=== PATIENT | female | born 1970 | race Caucasian/White ===

== ENCOUNTER 2019-06-07 15:25 | Inpatient (IN) | payer MEDICAID ==
[~2019-06-07] VITALS: Ht 170.2 cm; Wt 165.6 kg
--- NOTE | ~2019-06-07 | DS ---
PATIENT:SPIKE KAUR :70 MEDICAL RECORD: [id number] DISCHARGE SUMMARY ADMISSION DATE: 06/07/19 DISCHARGE DATE: 06/13/19 PRINCIPAL DIAGNOSIS: Large incarcerated ventral hernia. PROCEDURE: Laparoscopic incarcerated ventral hernia repair with mesh. OTHER DIAGNOSES: 1. New onset atrial fibrillation with rapid ventricular response. 2. Hypertension. 3. Left ventricular hypertrophy. 4. Trivial tricuspid regurgitation 5. Anxiety. 6. Arthritis. 7. Vertigo. HOSPITAL COURSE: The patient was a transfer from [place]. She underwent the above operative procedure. Postoperatively, she developed atrial fibrillation with a rapid ventricular response. Family practice and cardiology consultations were obtained. The patient converted to a sinus rhythm. She is being dismissed home on amiodarone as well as [place] and Colace. I will see her in the office in about 4 weeks. Discharge instructions were given to the patient verbally by me. TRANSINT:[id number] Voice Confirmation ID: [id number] DOCUMENT ID: [id number] RUTHIE DUQUE MD CC: [id number] DICTATION DATE: 06/13/191747 DRIVER LICENSE EXAMINER: 06/13/19 223 DIS IN 06/13/19 [place] [id number] [place] [id number]
[2019-06-07] MEDS ORDERED: LISINOPRIL20 MG PO (15:30)
[2019-06-07] MEDS ORDERED: XANAX1 MG PO (15:30)
[2019-06-07] MEDS ORDERED: MOBIC7.5 MG PO (15:30)
--- NOTE | 2019-06-07 16:03 | NUR ---
DR. DUQUE AT BEDSIDE , 2 MG OF DILAUDID GIVEN. PER ORDERS. PT LAYING FLAT AND SUPINE.
[2019-06-07 16:18] LABS: BASOPHILS 0.3 % (0-2); EOSINOPHILS 1.2 % (0-7); HEMATOCRIT 40.9 % (36.0-48.0); HEMOGLOBIN 13.4 g/dL (12-16); IMMATURE GRANULOCYTES 0.4 % (0-5); LYMPHOCYTES 19.2 % (15-50); MCH 28.5 pg (26.0-34.0); MCHC 32.8 g/dL (31.0-37.0); MEAN PLATELET VOLUME 9.8 fL (7.4-10.4); MONOCYTES 5.8 % (2-11); NEUTROPHILS 73.1 % (40-80); PLATELET COUNT 326 10x3/uL (130-400); RDW 15.7 % (11.5-14.5); WBC 11.9 10x3/uL (4.8-10.8)
[2019-06-07 16:28] LABS: CALC OSMOLALITY 276 mosm/kg (275-300); CALCIUM 9.2 mg/dL (8.5-10.1); CARBON DIOXIDE 27.3 mmol/L (21.0-32.0); CHLORIDE - SERUM 101 mmol/L (98-107); CREATININE - SERUM 0.8 mg/dL (0.6-1.3); GLUCOSE 124 mg/dL (74-106); POTASSIUM - SERUM 3.9 mmol/L (3.5-5.1); SODIUM 138 mmol/L (136-145); UREA NITROGEN 12 mg/dL (7-18); eGFR NON AFRICAN AMERICAN 81 mL/min (90-120)
[2019-06-07 16:39] LABS: ALBUMIN 3.7 g/dL (3.4-5.0); ALKALINE PHOSPHATASE 83 U/L (30-120); ALT (SGPT) 48 U/L (10-68); AMYLASE - SERUM 54 U/L (25-115); BILIRUBIN - TOTAL 0.48 mg/dL (0.2-1.3); LIPASE 577 U/L (73-393); PROTEIN - SERUM 7.7 g/dL (6.4-8.2); TROPONIN-I < 0.017 ng/mL (0.000-0.060)
[2019-06-07 17:23] LABS: APTT 29.3 SECONDS (22.8-39.4); INR 1.03 (0.85-1.17); PROTIME 13.4 SECONDS (11.6-15.0)
[2019-06-07 18:26] VITALS: BP 126/76; BMI 57.3
--- NOTE | 2019-06-07 19:00 | NUR ---
PATIENT ALERT AND ORIENTED WHEN ENTERING THE ROOM. PATIENT HAS DISTENDED ABDOMEN WITH HYPOACTIVE BOWELS SOUNDS TO EACH QUADRANT. ABDOMEN IS FIRM TO PALPATION. PATIENT STATES ITS TENDER TO TOUCH. DENIES PAIN MEDICINE AT THIS TIME. AT BEDSIDE. BOTH RECEPTIVE TO TEACHING ABOUT NPO AT MIDNIGHT AND CONSENTS FOR SURGERY. CALL LIGHT IN REACH. CPOC.
--- NOTE | 2019-06-07 19:52 | NUR ---
CALLED CUSTODIAL OPERATIONS MANAGER TO GET MEDICATIONS THAT DR. DUQUE PUT IN. WAS INFORMED THAT IT WOULD BE "A WHILE" AND THAT IT MAY HAVE TO BE FROM NEXT GASKET INSPECTOR.
[2019-06-07 20:00] VITALS: BP 136/57
--- NOTE | 2019-06-07 20:08 | NUR ---
ADMINISTERD DILAUDID COLLECTION DEVELOPMENT LIBRARIAN PER ORDER. SPOKE WITH PATIENT ON HOW TO USE AND PATIENT PROVIDED RETURN DEMONSTRATION. PATIENT STATES SHE DOES NOT WANT THE ATIVAN WITH THE DILAUDID. SHE STATES SHE FEELS THOUGH THE DILAUDID WILL HELP WITH HER ANXIETY. SPOKE WITH PATIENT ABOUT NPO STATUS AND UPCOMING MAG CITRATE. PATIENT VERBALIZES UNDERSTANDING. ALSO VERBALIZES UNDERSTANDING ON AM HIBBA CLEANSE. DENIES FURTHER NEEDS AT THIS TIME. CALL LIGHT IN REACH. CPOC.
--- NOTE | 2019-06-07 22:20 | NUR ---
PATIENT COMPLAINING OS NAUSEA. ADMINISTERED ZOFRAN PER ORDER.
--- NOTE | 2019-06-07 22:23 | NUR ---
CONSENTS SIGNED. PLACED ON CHART.
--- NOTE | 2019-06-07 23:03 | NUR ---
MANAGED SERVICES CONSULTANT CAME TO PULL MAG CITRATE THAT WAS ORDERED AT 1930 AFTER SEVERAL CALLS TO PULL MEDS. PROVIDED TO PATIENT AND INSTRUCTED TO DRINK 150 ML/HALF BOTTLE PER ORDER. HEAVILY ENCOURAGED TO DRINK PRIOR TO MIDNIGHT. PATIENT STATES UNDERSTANDING. PATIENT DRINKING PRIOR TO EXITING THE ROOM. CPOC.
[2019-06-08] VITALS: BP 139/69
--- NOTE | 2019-06-08 00:32 | NUR ---
URINE COLLECTED. SENT TO LAB PER ORDER.
[2019-06-08 00:42] LABS: BILIRUBIN NEGATIVE (NEGATIVE); GLUCOSE NEGATIVE (NEGATIVE); KETONE SMALL mg/dL (NEGATIVE); NITRITE NEGATIVE (NEGATIVE); UROBILINOGEN NORMAL (NORMAL)
--- NOTE | 2019-06-08 02:49 | NUR ---
I have reviewed this patient and I concur with the Shift Assessment completed by the Licensed Practical Nurse today this shift.
[2019-06-08 04:00] VITALS: BP 114/62
[2019-06-08 05:18] LABS: BASOPHILS 0.2 % (0-2); EOSINOPHILS 0.3 % (0-7); HEMATOCRIT 37.4 % (36.0-48.0); IMMATURE GRANULOCYTES 0.2 % (0-5); LYMPHOCYTES 13.4 % (15-50); MCH 28.1 pg (26.0-34.0); MCHC 32.1 g/dL (31.0-37.0); MCV 87.6 fL (80.0-100.0); MEAN PLATELET VOLUME 9.7 fL (7.4-10.4); NEUTROPHILS 79.9 % (40-80); PLATELET COUNT 296 10x3/uL (130-400); RBC 4.27 10x6/uL (4.00-5.40); RDW 15.6 % (11.5-14.5); WBC 11.4 10x3/uL (4.8-10.8)
[2019-06-08 05:44] LABS: ALBUMIN 3.3 g/dL (3.4-5.0); ALKALINE PHOSPHATASE 74 U/L (30-120); ALT (SGPT) 40 U/L (10-68); BILIRUBIN - TOTAL 0.53 mg/dL (0.2-1.3); CALC OSMOLALITY 278 mosm/kg (275-300); CALCIUM 8.4 mg/dL (8.5-10.1); CARBON DIOXIDE 28.5 mmol/L (21.0-32.0); CHLORIDE - SERUM 102 mmol/L (98-107); CREATININE - SERUM 0.8 mg/dL (0.6-1.3); GLUCOSE 120 mg/dL (74-106); MAGNESIUM - SERUM 2.3 mg/dL (1.8-2.4); PHOSPHOROUS 3.6 mg/dL (2.5-4.9); POTASSIUM - SERUM 3.8 mmol/L (3.5-5.1); PROTEIN - SERUM 7.1 g/dL (6.4-8.2); SODIUM 139 mmol/L (136-145); UREA NITROGEN 12 mg/dL (7-18); eGFR NON AFRICAN AMERICAN 81 mL/min (90-120)
[2019-06-08 08:06] VITALS: BP 133/67
--- NOTE | 2019-06-08 09:00 | NUR ---
ALERT AND ORIENTED X4. ABDOMEN OBESE WITH TENDERNESS AND DISTENTION NOTED ON PALPATION TO UMBILICAL AREA. BOWEL SOUNDS NOTED X4. IVF AND NETWORK CABLE INSTALLER DILAUDID AT PRESRIBED SETTINGS. DENEIS ANY PAIN OR DISCOMFORT AT THIS TIME. REMAINS NPO PENDING SURGERY WITH HIBICLNS DONE ON PRIOR SHIFT.SCD'S INTACT. HRRR AND LUNGS CTA.
--- NOTE | 2019-06-08 12:05 | NUR ---
PATIENT PRE-OPED WITH SURGICAL STAFF HERE. DENTURES REMOVED AND IN ROOM. STABLE AT TIME OF DEPARTURE.
[2019-06-08 12:34] VITALS: BP 125/57
--- NOTE | 2019-06-08 15:40 | NUR ---
APPROX 225 CC OF BLOODY OUTPUT FROM RACHEL DRAIN.
[2019-06-08 15:49] VITALS: BP 123/62
--- NOTE | 2019-06-08 15:58 | NUR ---
PATIENT RECEIVED TO ROOM IV AND ITEM PROCESSOR REESTABLISHED FOR PAIN MANAGEMENT. V/S STABLE
--- NOTE | 2019-06-08 19:05 | NUR ---
PATIENT ALERT AND ORIENTED WHEN ENTERING THE ROOM. AT BEDSIDE. PATIENT WEARING 2L NASAL CANNULA. VITALS ASSESSED AND STABLE AT THIS TIME. O2 % CURRENTLY 97% ON 2L, TITRATED TO 1, AND REMAINED AT 97, REMOVED NC AND O2 REMAINED AT 97. CANNULA IN REACH AT BEDSE IN CASE PATIENT FEELS SOB. VERBALIZED THIS TO PATIENT. RIGHT AC THAT IS PATENT AND INFUSING NS @ 125 WITH DILAUDID BOBBIN CLEANER 0.2/10/4MG LOCKOUT. PATIENT CURRENTLY WEARING ABDOMINAL BINDER. ASSESSED ABDOMEN, LAP SITES AND DRESSINGS TO MID SECTION. SCANT AMOUNT OF BRIGHT RED BLOOD NOTED TO THE DRESSING, NO SIGNS OF CONTINUAL BLEEDING. RACHEL DRAIN TO THE LEFT SIDE OF THE ABDOMEN. STRAINED LINE AND EMPTIED 10 CC. BOWEL SOUNDS ACTIVE IN EACH QUADRANT. PATIENT HAS SCD'S ON BILATERALLY. CURRENTLY USING [place]. DENIES FURTHER NEEDS AT THIS TIME. CPOC.
[2019-06-08 20:00] VITALS: BP 101/63
[2019-06-08 20:01] LABS: BASOPHILS 0.2 % (0-2); EOSINOPHILS 0.1 % (0-7); HEMATOCRIT 36.5 % (36.0-48.0); HEMOGLOBIN 11.4 g/dL (12-16); IMMATURE GRANULOCYTES 0.5 % (0-5); LYMPHOCYTES 8.2 % (15-50); MCH 27.9 pg (26.0-34.0); MCHC 31.2 g/dL (31.0-37.0); MCV 89.2 fL (80.0-100.0); MEAN PLATELET VOLUME 9.5 fL (7.4-10.4); MONOCYTES 4.9 % (2-11); NEUTROPHILS 86.1 % (40-80); PLATELET COUNT 260 10x3/uL (130-400); RBC 4.09 10x6/uL (4.00-5.40); RDW 15.9 % (11.5-14.5)
[2019-06-08 20:04] LABS: WBC 15.4 10x3/uL (4.8-10.8)
--- NOTE | 2019-06-08 21:05 | NUR ---
PATIENT COMPLAINING OF NAUSEA. ADMINISTERED ZOFRAN PER ORDER.
--- NOTE | 2019-06-08 23:09 | NUR ---
ASSISTED PATIENT IN REPOSITIONING. DENIES FURTHER NEEDS AT THIS TIME. CALL LIGHT IN REACH. SIDE RAILS UP X 2. IV REMAINS PATENT. CPOC.
[2019-06-09] VITALS: BP 123/65
--- NOTE | 2019-06-09 03:00 | NUR ---
I have reviewed this patient and I concur with the Shift Assessment completed by the Licensed Practical Nurse today this shift.
[2019-06-09 04:00] VITALS: BP 104/58
[2019-06-09 08:58] VITALS: BP 185/83
--- NOTE | 2019-06-09 09:31 | NUR ---
WENT TO ASSESS PT AND EXPLAINED THAT I WAS GOING TO LOOK AT HER LAPSITES, PT STATED ARE YOU GOING TO UNDO IT. I THOUGHT SHE MEANT HER DRESSING SO I STATED NO I JUST WANT TO LOOK AT YOUR DRAINAGE, WENT TO UNDO ABDOMINAL BINDER AND PT NEARLY JUMPED OUT OF HER SKIN STATING IT HURTS TOO BAD AND TO PUT IT BACK. UNABLE TO ASSESS ALL INCISION SITES AT THIS TIME. INCISION TO RT ABD IS CLEAN AND DRY, SAW A LARGE MIDLINE DRESSING WHICH LOOKS TO BE CDI, RACHEL DRAIN TO LEFT SIDE, IV IS IN PT RT AC, RA, SPOUSE AT BEDSIDE,CL IN REACH, CONTINUE WITH PLAN OF CARE
--- NOTE | 2019-06-09 12:13 | NUR ---
PT C/O ABD PAIN AT A 10 STILL WITH GEODETIC COMPUTATOR, PT STATES THAT SHE WANTS TO SEE , PT HAS GEODETIC COMPUTATOR AND NO OTHER MEDS AT THIS TIME FOR PAIN, OFFERED BOLUS AND PT DECLINED, PT DID REQUEST NAUSEA MEDICATION, SPOUSE AT BEDSIDE, NO OTHER NEEDS VOICED AT THIS TIOME, CONTINUE WITH PLAN OF CARE
[2019-06-09 13:49] VITALS: BP 123/86
--- NOTE | 2019-06-09 14:22 | NUR ---
I have reviewed this patient and I concur with the Shift Assessment completed by the Licensed Practical Nurse today this shift.
[2019-06-09 14:57] VITALS: BMI 57.2
[2019-06-09 16:39] VITALS: BP 115/57
[2019-06-09 20:00] VITALS: BP 125/57
--- NOTE | 2019-06-10 03:00 | NUR ---
PT REPORTS STEADY ABDOMINAL PAIN WITH LEGAL ARBITRATOR USE, DRESSINGS C/D/I. REPORTS NO PASSING OF FLATUS, BUT FEELS IT RUMBLING IN HER ABDOMEN. ENCOURAGED PT TO SWITCH POSITIONS FREQUENTLY AND TRY SITTING UP AND GETTING UP TO HELP PASSAGE OF GAS. PT VERBALIZED UNDERSTANDING. WILL CONTINUE TO MONITOR.
[2019-06-10 04:00] VITALS: BP 122/62
--- NOTE | 2019-06-10 07:30 | NUR ---
PT IS SITTING UP TO BEDSIDE CHAIR. PT IS AAO X 4 WITH COMPLAINTS OF NAUSEA WITHOUT EMESIS AT THIS TIME. PT DESCRIBES PAIN TO ABDOMEN SHARP AND 10/10. LEASING AGENT DILAUDID AVAILABLE. PT STATES "IM JUST NOT READY TO GO HOME. WHY AM I THROWING UP". PT STATES THAT SHE HAS NOT PASSED GAS "YET". PT ENCOURAGED TO TCDB WITH PILLOWS USED FOR SPLINTING. PT VERBALIZES UNDERSTANDING AND DENIES FURTHER QUESTIONS.BED IS IN THE LOWEST POSITION. BEDSIDE CHAIR WHEELS ARE LOCKED. CALL LIGHT AND BEDSIDE TABLE ARE WITIHN REACH. SIDE RAILS X 2. PT DENIES FURTHER NEEDS. WILL CONT TO MONITOR.
[2019-06-10 08:10] VITALS: BP 125/56
--- NOTE | 2019-06-10 11:33 | OP ---
PATIENT NAME: SPIKE KAUR MEDICAL RECORD: [id number] :70 LOCATION:D.MS [id number] ADMISSION DATE:06/07/19 SURGEON: RUTHIE DUQUE MD DATE OF OPERATION: 06/08/2019 PREOPERATIVE DIAGNOSIS: Incarcerated ventral hernia. POSTOPERATIVE DIAGNOSIS: Incarcerated ventral hernia. PROCEDURE: Laparoscopic incarcerated ventral hernia repair with the Ventralight ST mesh. SURGEON: Ruthie Duque MD ROTARY SAW OPERATOR: None. BLOOD LOSS: Please see the anesthesia sheet. DRAINS: Times 1 (10-Sammarinese round fully fluted drainage system). OPERATIVE COURSE: The patient was conveyed to the operating room electively on 06/08/2019. General anesthesia was induced by anesthesia staff. The abdomen was sterilely prepped and draped. A skin incision was accomplished in the left upper quadrant. Veress needle was inserted through the skin incision into the peritoneal cavity. CO2 insufflation was begun. Once a sufficient pneumoperitoneum had been achieved, two 5-mm trocars were inserted in the left side of the abdomen. One of these trocars had to be bariatric length trocar in order for it not to slide out. There was incarcerated omentum within the umbilicus. With pressure outside of the umbilicus pushing the umbilicus down, I was able to reduce the incarcerated contents in their entirety. There was very little bleeding. Some of the incarcerated omentum was divided with the Harmonic scalpel. I was able to reduce all of the omental contents that I could identify. Some nonviable portions of the omentum and some portions of the omentum which had been removed were placed within a bag retrieval device and were withdrawn through the 12-mm trocar in the left upper quadrant. The 12-mm trocar was replaced. I removed a portion of the pseudo sac. A prevesicular flap was created. I then took a spinal needle and measured the size of the hernia defect. I brought onto the sterile field a Ventralight ST mesh. I removed the Echo positioning system. I hydrated the mesh. On the rough portion of the mesh, I placed 0 Vicryl sutures and tied them at 12, 3, 6, and 9 o'clock. I then rolled up the mesh and advanced it into the peritoneal cavity. It was then unrolled. Two 5-mm trocars were then inserted in the left side of the abdomen. This was going to be a parachute type of repair. At 4 points around the umbilicus, small incisions were accomplished. At each site, the laparoscopic suture passer was advanced twice through a different fascial site and I grasped the Surgidacs at each site. I then tied. This fixated the mesh up against the anterior abdominal wall in the appropriate fashion with the slick side toward the bowels. To complete the herniorrhaphy, I utilized the OptiFix and the SorbaFix Tacker circumferentially. Some bleeding was controlled with the hook cautery. OPERATIVE REPORT [id number] SPIKE KAUR The 12-mm trocar was removed. The muscle at the site was closed with a single 0 Vicryl suture utilizing the Scott-Martha suture closure device. A 10-Sammarinese round drain was then advanced down through the lowermost trocar on the left. It was sutured to skin with 4-0 nylon. All the skin incisions were closed with interrupted intracuticular 3-0 Vicryls. Benzoin and Steri-Strips were applied. The patient was then extubated and conveyed to post-anesthesia care unit where she was having a good bit of discomfort. TRANSINT:[id number] Voice Confirmation ID: [id number] DOCUMENT ID: [id number] RUTHIE DUQUE MD at 1133 CC: [id number] DICTATION DATE: 06/08/19 1551 CATH LABORATORY TECHNICIAN: 06/08/19 2335 ADM IN [facility] [address] [place] [address]
[2019-06-10 12:24] VITALS: BP 121/59
--- NOTE | 2019-06-10 14:05 | NUR ---
SHRIMP PEELING MACHINE TENDER MEDICATION CHANGED PER ORDER. PT REQUESTS FOR PAIN/NAUSEA MEDICATION TO TAKE EFFECT PRIOR TO RACHEL DRAIN REMOVAL.
--- NOTE | 2019-06-10 14:56 | NUR ---
RACHEL DRAIN TO LEFT ABDOMEN REMOVED PER ORDER. PT TOLERATED WELL. FAMILY AT BEDSIDE. BED IS IN THE LOWEST POSITION. CALL LIGHT AND BEDSIDE TABLE ARE WITHIN REACH. SIDE RAILS X 2. WILL CONT TO MONITOR.
[2019-06-10 15:51] VITALS: BP 141/78
--- NOTE | 2019-06-10 19:00 | NUR ---
BEDSIDE REPORT RECEIVED AND CARE OF PT ASSUMED. PT LYING IN LOW GEE'S POSITION VISITING WTIH SPOUSE. IV TO RIGHT AC PATENT WITH NS INFUSING AT 100 ML/HR. CHIEF ORDER DISPATCHER W/ MORPHINE IN USE FOR PAIN CONTROL. SCD'S IN USE ON BLE. WILL MONITOR FOR NEEDS.
[2019-06-10 20:00] VITALS: BP 119/46
--- NOTE | 2019-06-10 20:02 | NUR ---
PT AMBULATING IN THE HALLWAY WITH SPOUSE AT THIS TIME.
--- NOTE | 2019-06-10 21:24 | NUR ---
HS MEDICATIONS GIVEN. WILL CONTINUE TO MONITOR FOR NEEDS. SPOUSE IS AT BEDSIDE.
[2019-06-11] VITALS: BP 132/58
--- NOTE | 2019-06-11 02:39 | NUR ---
ASSISTED PT UP TO VOID. POSITIONED BACK IN BED FOR COMFORT. PT WANTS TO TAKE BREAK FROM SCD'S. EMPTIED TRASH CANS AND CLEANED BATHROOM OF DIRTY LINENS. PROVIDED FRESH ICE AND ICE WATER. WILL CONTINUE TO MONITOR FOR NEEDS.
[2019-06-11 04:00] VITALS: BP 148/58
[2019-06-11 05:27] LABS: BASOPHILS 0.3 % (0-2); EOSINOPHILS 1.5 % (0-7); HEMATOCRIT 33.3 % (36.0-48.0); HEMOGLOBIN 10.3 g/dL (12-16); IMMATURE GRANULOCYTES 0.8 % (0-5); LYMPHOCYTES 7.7 % (15-50); MCH 27.6 pg (26.0-34.0); MCHC 30.9 g/dL (31.0-37.0); MCV 89.3 fL (80.0-100.0); MEAN PLATELET VOLUME 9.9 fL (7.4-10.4); MONOCYTES 7.7 % (2-11); PLATELET COUNT 259 10x3/uL (130-400); RBC 3.73 10x6/uL (4.00-5.40); RDW 15.8 % (11.5-14.5); WBC 11.6 10x3/uL (4.8-10.8)
[2019-06-11 05:55] LABS: ALBUMIN 2.6 g/dL (3.4-5.0); ALKALINE PHOSPHATASE 69 U/L (30-120); ALT (SGPT) 26 U/L (10-68); BILIRUBIN - TOTAL 0.62 mg/dL (0.2-1.3); CALC OSMOLALITY 273 mosm/kg (275-300); CALCIUM 7.4 mg/dL (8.5-10.1); CARBON DIOXIDE 29.3 mmol/L (21.0-32.0); CHLORIDE - SERUM 100 mmol/L (98-107); CREATININE - SERUM 0.7 mg/dL (0.6-1.3); GLUCOSE 128 mg/dL (74-106); PHOSPHOROUS 1.7 mg/dL (2.5-4.9); PROTEIN - SERUM 5.9 g/dL (6.4-8.2); SODIUM 137 mmol/L (136-145); UREA NITROGEN 6 mg/dL (7-18); eGFR NON AFRICAN AMERICAN > 90 mL/min (90-120)
--- NOTE | 2019-06-11 07:16 | NUR ---
PT K+ IS 3.0 THIS MORNING, ADMINISTER 40MEQ OF K+ ORDER RECHECK. NO OTHER NEEDS AT THIS TIME, ASSUME PT CARE
[2019-06-11 08:54] VITALS: BP 145/61
--- NOTE | 2019-06-11 10:20 | MORECARE ---
CASE MANAGEMENT DISCHARGE SUMMARY PATIENT: SPIKE KAUR UNIT: [id number] ADM DATE: 06/07/19 AGE: 49 : 70 SEX: F ROOM/BED: D.2216 AUTHOR: EVONNE CHÁVEZ PHYSICIAN: REFERRING PHYSICIAN: RUTHIE DUQUE MD DATE OF SERVICE: 06/11/19 Discharge Plan Patient Name: SPIKE KAUR [facility] [facility] 1970 Planned Disposition: Home or Self Care Anticipated Discharge Date: Discharge Date: Expected LOS: Initial Reviewer: [email or web address] Initial Review Date: 06/07/2019 Generated: 06/11/19 11:19 am Patient Name: SPIKE KAUR Page [phone] at 1020 All edits/amendments must be made on the electronic document DICTATION DATE: 06/11/19 1019 SUPERVISOR VENDOR QUALITY: GLORY 06/11/19 1019 RPT#: [id number] DC DATE: STATUS: ADM IN [facility] [address] [place] [address] END OF REPORT
--- NOTE | 2019-06-11 10:28 | MORECARE ---
CASE MANAGEMENT DISCHARGE SUMMARY PATIENT: SPIKE KAUR UNIT: [id number] ADM DATE: 06/07/19 AGE: 49 : 70 SEX: F ROOM/BED: D.2216 AUTHOR: EVONNE CHÁVEZ PHYSICIAN: REFERRING PHYSICIAN: RUTHIE DUQUE MD DATE OF SERVICE: 06/11/19 Discharge Plan Patient Name: SPIKE KAUR [facility] [facility] 1970 Planned Disposition: Home or Self Care Anticipated Discharge Date: Discharge Date: Expected LOS: Initial Reviewer: [email or web address] Initial Review Date: 06/07/2019 Generated: 06/11/19 11:27 am DCPIA - Discharge Planning Initial Assessment Updated by [email or web address]: Renee Del Cid on 06/11/19 10:20 am * Is the patient Alert and Oriented? Yes * How many steps to enter\exit or inside your home? * PCP SHANDRA PAT ([place]) * Pharmacy [facility] IN [place] * Preadmission Environment Home with Family * ADLs Independent * Equipment None * List name and contact numbers for known caregivers / representatives who currently or will assist patient after discharge: CAMMY KAUR ([place]) [phone] * Verbal permission to speak to the caregivers and representatives has been obtained from the patient. N/A * Community resources currently utilized None * Additional services required to return to the preadmission environment? No * Can the patient safely return to the preadmission environment? Yes * Has this patient been hospitalized within the prior 30 days at any hospital? No Last DP export: 06/11/19 9:20 a Patient Name: SPIKE KAUR Page [phone] at 1028 All edits/amendments must be made on the electronic document DICTATION DATE: 06/11/19 1027 ADOPTION MANAGER: GLORY 06/11/19 1027 RPT#: [id number] DC DATE: STATUS: ADM IN [facility] [address] [place] [address] END OF REPORT
--- NOTE | 2019-06-11 10:36 | MORECARE ---
CASE MANAGEMENT DISCHARGE SUMMARY PATIENT: SPIKE KAUR UNIT: [id number] ADM DATE: 06/07/19 AGE: 49 : 70 SEX: F ROOM/BED: D.2216 AUTHOR: KYLERDOC PHYSICIAN: REFERRING PHYSICIAN: RUTHIE DUQUE MD DATE OF SERVICE: 06/11/19 Discharge Plan Patient Name: SPIKE KAUR Facility: [facility]:[place] [facility] : 1970 Planned Disposition: Home or Self Care Anticipated Discharge Date: Discharge Date: Expected LOS: Initial Reviewer: [email or web address] Initial Review Date: 06/07/2019 Generated: 06/11/19 11:35 am Comments DCP- Discharge Planning Updated by [email or web address]: Renee Del Cid on 06/11/19 9:[address] Patient Name: SPIKE KAUR Admission Status: ER Accout number: [id number] Admission Date: 06-07-2019 : 1970 Admission Diagnosis: Attending: RUTHIE DUQUE Current LOS: 4 Anticipated DC Date: Planned Disposition: Home or Self Care Primary Insurance: MEDICAID [place]END[place] Discharge Planning Comments: CM met with patient to complete initial dc planning assessment. CM educated patient on the CM role and verbal consent given by patient to complete assessment. Patient lives at home with her spouse in [place] where she states she is independent with her care. At discharge patient plans to return home and feels this is a safe discharge. CM discussed availability of home health, rehab services, and medical equipment. Her spouse will be her swing driver home. Patient denied known discharge needs at this time. CM will continue to follow and will assist as needed with dc plans/needs. Scroll Shear Operator: Renee Del Cid DCPIA - Discharge Planning Initial Assessment Updated by [email or web address]: Renee Del Cid on 06/11/19 10:20 am * Is the patient Alert and Oriented? Yes * How many steps to enter\exit or inside your home? * PCP SHANDRA PAT ([place]) * Pharmacy [facility] IN [place] * Preadmission Environment Home with Family * ADLs Independent * Equipment None * List name and contact numbers for known caregivers / representatives who currently or will assist patient after discharge: CAMMY KAUR ([place]) [phone] * Verbal permission to speak to the caregivers and representatives has been obtained from the patient. N/A * Community resources currently utilized None * Additional services required to return to the preadmission environment? No * Can the patient safely return to the preadmission environment? Yes * Has this patient been hospitalized within the prior 30 days at any hospital? No Last DP export: 06/11/19 9:28 a Patient Name: SPIKE KAUR Page [phone] at 1036 All edits/amendments must be made on the electronic document DICTATION DATE: 06/11/19 1035 RN PEDIATRIC ICU: GLORY 06/11/19 1035 RPT#: [id number] DC DATE: STATUS: ADM IN [facility] [address] [place] [address] END OF REPORT
--- NOTE | 2019-06-11 11:46 | NUR ---
PT K+ CAME BACK STILL LOW AT 3.1, ADMINISTERED ANOTHER 40MEQ, WILL CONTINUE WITH PLAN OF CARE
[2019-06-11 12:32] VITALS: BP 118/54
--- NOTE | 2019-06-11 14:50 | NUR ---
I have reviewed this patient and I concur with the Shift Assessment completed by the Licensed Practical Nurse today this shift.
--- NOTE | 2019-06-11 14:52 | NUR ---
PT C/O SWEATING AND ABLE TO FEEL HR WHEN DR DUQUE MADE ROUNDS, STATED PT IS IN AFIB AND ORDERED TELEMETRY WELL PHYSICIAN CONSULT FOR MEDICAL MGMNT FROM DR PEREZ, PER DR PEREZ STAT EKG AND CARDIOLOGY CONSULT, KERWIN DEVRIES CAME TO SEE PT AND ADMINISTERED 5MG OF METROPOLOL, PT HR GOT DOWN TO 130'S AND STARTYED TO RISE AGAIN, PT BEING PLACED ON DRIP AND MOVED TO PCU, CALLED HS AND WAITING FOR CALL BACK ON BED
[2019-06-11 15:01] VITALS: Ht 170.2 cm; Wt 165.6 kg
--- NOTE | 2019-06-11 20:07 | NUR ---
EVENING ROUNDS COMPLETED. PT AAOX4, AFVSS, PT ON MORPHINE PUMP. NEXTERONE INFUSING @ 33.3. SPOUSE AT BEDSIDE. PT PT DENIES ANY FURTHER NEEDS AT THIS TIME. WILL CPOC. CL WITHIN REACH, BED IN LOW, SR UP X2.
[2019-06-11 20:32] VITALS: BP 118/79
--- NOTE | 2019-06-11 21:49 | NUR ---
NEXTERONE INFUSING @ 17CCS/HR.
[2019-06-12] VITALS: BP 110/50
[2019-06-12 04:50] VITALS: BP 117/54
[2019-06-12 09:44] VITALS: BP 139/62
--- NOTE | 2019-06-12 12:35 | NUR ---
Nutrition Follow-up: Spoke with pt following breakfast this AM. Tolerating clears and wanting solids. Spoke with pt's nurse, Jessie re: diet advancement. Noted diet has now been advanced to regular per Dr. Mercedes. Diet: Regular No new wt; last wt: 365# (06/08) Last BM: 06/11 Labs reviewed Meds noted: Colace, KDur, NS @ 100, Zofran, Pepcid -Continue current diet as tolerated. -RD following.
--- NOTE | 2019-06-12 13:30 | NUR ---
DRSGS CHANGED TO ABD. OTHER SM INCISIONS OPEN TO AIR. WILL MONITOR.
[2019-06-12 13:47] VITALS: BP 114/62
[2019-06-12 14:46] LABS: BASOPHILS 0.3 % (0-2); EOSINOPHILS 3.5 % (0-7); HEMATOCRIT 35.7 % (36.0-48.0); HEMOGLOBIN 10.9 g/dL (12-16); IMMATURE GRANULOCYTES 0.8 % (0-5); MCH 27.7 pg (26.0-34.0); MCHC 30.5 g/dL (31.0-37.0); MCV 90.6 fL (80.0-100.0); MEAN PLATELET VOLUME 9.8 fL (7.4-10.4); NEUTROPHILS 75.4 % (40-80); PLATELET COUNT 286 10x3/uL (130-400); RBC 3.94 10x6/uL (4.00-5.40); RDW 15.9 % (11.5-14.5); WBC 11.6 10x3/uL (4.8-10.8)
[2019-06-12 15:01] LABS: CALC OSMOLALITY 283 mosm/kg (275-300); CALCIUM 8.2 mg/dL (8.5-10.1); CARBON DIOXIDE 32.5 mmol/L (21.0-32.0); CHLORIDE - SERUM 102 mmol/L (98-107); CREATININE - SERUM 0.8 mg/dL (0.6-1.3); GLUCOSE 109 mg/dL (74-106); MAGNESIUM - SERUM 2.2 mg/dL (1.8-2.4); SODIUM 143 mmol/L (136-145); UREA NITROGEN 6 mg/dL (7-18); eGFR NON AFRICAN AMERICAN 81 mL/min (90-120)
[2019-06-12 15:03] LABS: POTASSIUM - SERUM 3.7 mmol/L (3.5-5.1)
--- NOTE | 2019-06-12 16:14 | NUR ---
REMAIN IN NSR. HEEL SEAT LASTER FOR PAIN CONTRO. UP TO CHAIR WITH CALL LIGHT IN REACH. WILL CONT. PLAN OF CARE.
[2019-06-12 17:53] VITALS: BP 127/69
[2019-06-12 20:00] VITALS: BP 119/69
--- NOTE | 2019-06-12 21:25 | NUR ---
EVENING ROUNDS COMPLETED. AFVSS, AAOX4, SPOUSE AT BEDSIDE. PT RESTING COMFORTBALY. LUNESTA GIVEN ALONGSIDE PM MEDS. DC'D IV CORDARONE PER PROVIDERS ORDER. PO CORDARONE GIVEN. PT DENIES ANY FURTHER NEEDS AT THIS TIME. WILL CPOC. CL WITHIN REACH, BED IN LOW, SR UP X2.
[2019-06-13] VITALS: BP 130/66
[2019-06-13 04:00] VITALS: BP 134/74
--- NOTE | 2019-06-13 05:31 | NUR ---
TRAVEL REGISTERED NURSE PACU ASSIST PT WITH SHOWER. ZOFRAN GIVEN FOR NAUSEA AFTER SHOW. LAP SITES ASSESED. APPEARS C/D/I. NO S/S OF BLEEDING. PT DENIES PAIN. WILL CTM. CL WITHIN REACH.
--- NOTE | 2019-06-13 07:15 | NUR ---
RECEIVED PT IN BED AAOX4 RESP UNLABOREDSKIN W/D COLOR WNL DENIES ANY PAIN OR NEEDS AT THIS TIME
[2019-06-13 10:19] VITALS: BP 121/72
[2019-06-13 11:50] LABS: T4 THYROXIN - FREE 1.23 ng/dL (0.76-1.46); THYROID STIMULATING HORMONE 1.81 uIU/mL (0.36-3.74)
[2019-06-13 12:59] VITALS: BP 114/66
--- NOTE | 2019-06-13 17:09 | NUR ---
CALLED IN PRESCRIPTION FOR CARDORONE 200 MG PO BID X1 WEEK THEN ONE DAILY TRISHA ANDERSON SPOKE WITH PHARMACIST TIFFANIE
[2019-06-13] MEDS ORDERED: AMIODARONE HCL200 MG PO (18:03)
[2019-06-13] MEDS ORDERED: COLACE100 MG PO (18:05)
[2019-06-13] MEDS ORDERED: HYDROCODON-ACE1 EAC7 PO (18:05)
[2019-06-13 18:16] VITALS: BP 128/47
--- NOTE | 2019-06-13 20:10 | NUR ---
REPORT RECIEVED AND INITIAL ROUNDS COMPLETED. PT IS WAITING FOR HER RIDE TO GET HERE TO GO HOME. IV HAS BEEN REMOVED. CPOC.
--- NOTE | 2019-06-13 20:59 | NUR ---
D/C TO HOME VIA PRIVATE VEHICLE AT THIS TIME. ALL BELONGINGS WITH PATIENT. AND SISTER PRESENT.
--- NOTE | 2019-06-15 16:01 | MORECARE ---
CASE MANAGEMENT DISCHARGE SUMMARY PATIENT: SPIKE KAUR UNIT: [id number] ADM DATE: 06/07/19 AGE: 49 : 70 SEX: F ROOM/BED: D.6901 AUTHOR: EVONNE CHÁVEZ PHYSICIAN: REFERRING PHYSICIAN: RUTHIE DUQUE MD DATE OF SERVICE: 06/15/19 Discharge Plan Patient Name: SPIKE KAUR Facility: [facility]:[place] : 1970 Planned Disposition: Home or Self Care Anticipated Discharge Date: Discharge Date: 06/13/2019 Expected LOS: Initial Reviewer: [email or web address] Initial Review Date: 06/07/2019 Generated: 06/15/19 5:00 pm DCP- Discharge Planning Updated by [email or web address]: Renee Del Cid on 06/11/19 9:[address] Patient Name: SPIKE KAUR Admission Status: ER Accout number: [id number] Admission Date: 06-07-2019 : 1970 Admission Diagnosis: Attending: RUTHIE DUQUE Current LOS: 4 Anticipated DC Date: Planned Disposition: Home or Self Care Primary Insurance: MEDICAID [place] PENDING Discharge Planning Comments: CM met with patient to complete initial dc planning assessment. CM educated patient on the CM role and verbal consent given by patient to complete assessment. Patient lives at home with her spouse in [place] where she states she is independent with her care. At discharge patient plans to return home and feels this is a safe discharge. CM discussed availability of home health, rehab services, and medical equipment. Her spouse will be her fork truck driver home. Patient denied known discharge needs at this time. CM will continue to follow and will assist as needed with dc plans/needs. Irrigation Flume Layer: Renee Del Cid DCPIA - Discharge Planning Initial Assessment Updated by [email or web address]: Renee Del Cid on 06/11/19 10:20 am * Is the patient Alert and Oriented? Yes * How many steps to enter\exit or inside your home? * PCP SHANDRA PAT ([place]) * Pharmacy [facility] IN [place] * Preadmission Environment Home with Family * ADLs Independent * Equipment None * List name and contact numbers for known caregivers / representatives who currently or will assist patient after discharge: CAMMY KAUR ([place]) [phone] * Verbal permission to speak to the caregivers and representatives has been obtained from the patient. N/A * Community resources currently utilized None * Additional services required to return to the preadmission environment? No * Can the patient safely return to the preadmission environment? Yes * Has this patient been hospitalized within the prior 30 days at any hospital? No Last DP export: 06/11/19 9:36 a Patient Name: SPIKE KAUR Page 90362 at 1601 All edits/amendments must be made on the electronic document DICTATION DATE: 06/15/191599 DYE PADDER OPERATOR: GLORY 06/15/191599 RPT#: [id number] DC DATE:06/13/19 STATUS: DIS IN [facility] [address] [place] [address] END OF REPORT
== END 2019-06-13 21:00 | disposition home or self-care (01) | DRG 354 ==
LOC: D.ER 15:25 → D.MS 16:12 → D.M2 06-11 15:44
PROVIDERS: Emergency Medicine; Family Medicine; Internal Medicine Cardiovascular Disease; ADMIT Surgery; ATTEND Surgery
PROC: 0WUF4JZ Supplement Abdominal Wall with Synthetic Substitute, Percutaneous Endoscopic Approach (ICD-10-PCS; principal; 2019-06-08 08:15)
DX: K43.6 Other and unspecified ventral hernia with obstruction, without gangrene (principal); Z68.43 Body mass index [BMI] 50.0-59.9, adult; I10 Essential (primary) hypertension; M19.90 Unspecified osteoarthritis, unspecified site; E66.01 Morbid (severe) obesity due to excess calories; I48.91 Unspecified atrial fibrillation

== ENCOUNTER 2019-07-11 08:41 | Day surgery (SDC) | payer MEDICAID ==
[~2019-07-11] VITALS: Ht 170.2 cm; Wt 161.5 kg
[~2019-07-11 08:41] MED LIST: AMIODARONE HCL200 MG PO; COLACE100 MG PO; HYDROCODON-ACE1 EAC7 PO; LISINOPRIL20 MG PO; MOBIC7.5 MG PO; XANAX1 MG PO
[2019-07-11 09:20] LABS: ANION GAP 11.1 mmol/L (8-16); CALCIUM 9.6 mg/dL (8.5-10.1); CARBON DIOXIDE 29.3 mmol/L (21.0-32.0); CREATININE - SERUM 0.9 mg/dL (0.6-1.3); POTASSIUM - SERUM 4.4 mmol/L (3.5-5.1)
[2019-07-11 09:40] LABS: BASOPHILS 0.6 % (0-2); EOSINOPHILS 6.2 % (0-7); HEMATOCRIT 37.8 % (36.0-48.0); HEMOGLOBIN 11.1 g/dL (12-16); IMMATURE GRANULOCYTES 0.2 % (0-5); LYMPHOCYTES 19.9 % (15-50); MCH 26.2 pg (26.0-34.0); MCHC 29.4 g/dL (31.0-37.0); MCV 89.4 fL (80.0-100.0); MEAN PLATELET VOLUME 9.4 fL (7.4-10.4); MONOCYTES 6.7 % (2-11); NEUTROPHILS 66.4 % (40-80); RBC 4.23 10x6/uL (4.00-5.40); RDW 16.3 % (11.5-14.5); WBC 8.2 10x3/uL (4.8-10.8)
[2019-07-11 09:47] LABS: PLATELET COUNT 359 10x3/uL (130-400)
[2019-07-11 11:08] VITALS: BP 115/72; Ht 170.2 cm; Wt 161.5 kg
--- NOTE | 2019-07-11 18:01 | HP ---
PATIENT: SPIKE KAUR MEDICAL RECORD: [id number] ACCOUNT: [id number] LOCATION:D.OPS : 70 ADMISSION DATE: 07/11/19 PCP: RUTHIE DUQUE MD HISTORY AND PHYSICAL EXAMINATION Cc: Hematoma PRIMARY CARE: Dr. Michelle Heck. HISTORY OF PRESENT ILLNESS: The patient has a tense subcutaneous hematoma within the pseudo sac of a ventral hernia repair, which was performed due to incarceration. She has not been running a fever. She has had no nausea. I am uncertain whether she has an abscess within the pseudo sac or whether this is a sterile hematoma. I will plan for incision and drainage and if purulence was identified, it may be necessary to remove the mesh. The skin over the pseudo sac is dark. The area is somewhat tender and I believe that the pressure from the hematoma will lead to full thickness necrosis if the hematoma is not decompressed. PAST MEDICAL AND SURGICAL HISTORY: History of tachycardia, vertigo, otitis media, history of dentures, hypertension, recent hernia repair, depression, anxiety, history of cholecystectomy, history of tubal ligation. HOME MEDICATIONS: Please see the nursing list. FAMILY HISTORY: Parent had cardiovascular disease as well as diabetes. SOCIAL HISTORY: Former smoker. PHYSICAL EXAMINATION: GENERAL: The patient does not appear acutely ill. She does appear chronically ill. VITAL SIGNS: Reviewed. EARS: External ears appear normal. EYES: Extraocular movements are intact. NECK: Trachea is midline. CHEST: No intercostal retractions. PULMONARY: Nonlabored, no stridor. ABDOMEN: As described above. IMPRESSION: Postoperative subcutaneous hematoma versus abscess. PLAN: Incision and drainage. TRANSINT:[id number] Voice Confirmation ID: [id number] DOCUMENT ID: [id number] HISTORY AND PHYSICAL [id number] SPIKE KAUR RUTHIE DUQUE MD at 1801 CC: [id number] DICTATION DATE: 07/11/19 1119 [employer] SPECIALIST: 07/11/19 1215 [facility] 07/11/19 [place] [id number]
--- NOTE | 2019-07-23 09:42 | OP ---
PATIENT NAME: SPIKE KAUR MEDICAL RECORD: [id number] :70 [facility]: SURGEON: MOE DUQUE MD DATE OF OPERATION: 07/11/2019 PREOPERATIVE DIAGNOSIS: Postoperative subcutaneous hematoma. POSTOPERATIVE DIAGNOSES: Postoperative subcutaneous hematoma. PROCEDURE: Incision and drainage of postoperative subcutaneous hematoma. SURGEON: Moe Duque MD GENERAL ASSISTANT: None. BLOOD LOSS: Minimal new blood loss. COMPLICATIONS: None. The risks, possible complications, and alternatives to the procedure were explained to the patient. She elects to proceed. Discussion specifically included, but was not limited to, bleeding requiring emergency reoperation, infection, and possible need for removal of the mesh. OPERATIVE COURSE: The patient was conveyed to the operating room electively on 07/11/2019. General anesthesia was induced by the anesthesia staff. The abdomen was sterilely prepped and draped. An incision was accomplished over the hematoma. I entered the hematoma cavity. The liquefied hematoma was identified. This was aspirated. The hematoma had no smell. I irrigated in the hematoma cavity with normal saline and then hydrogen peroxide. The incision was then closed with a single 3-0 Vicryl suture. A sterile dressing was applied. The patient was then extubated and conveyed to post-anesthesia care unit where she was in stable condition. TRANSINT:[id number] Voice Confirmation ID: [id number] DOCUMENT ID: [id number] MOE DUQUE MD at 0942 CC: [id number] DICTATION DATE: 07/22/19 1643 CRABBER: 07/23/19 [id number] [facility] 07/11/[address] [id number]
== END 2019-07-11 15:10 | disposition home or self-care (01) ==
LOC: D.OPS 08:41
PROVIDERS: Anesthesiology; ATTEND Surgery
DX: L76.32 Postprocedural hematoma of skin and subcutaneous tissue following other procedure (principal); Z98.890 Other specified postprocedural states; I10 Essential (primary) hypertension